=== PATIENT | male | born 1975 | race Asian ===

== ENCOUNTER 2017-04-03 21:14 | Emergency (ER) | payer OTHER ==
[~2017-04-03] VITALS: Ht 172.7 cm; Wt 81.0 kg
[~2017-04-03 21:14] MED LIST: ALLO100T PO; COLC0.6T69 PO
[2017-04-03] MEDS ORDERED: TOPI100T9 PO (21:29)
[2017-04-03] MEDS ORDERED: LISI-660 PO (21:29)
[2017-04-03 21:42] VITALS: BP 152/86
[2017-04-03] MEDS ORDERED: LIDOCAINE HCL BUFFERED 1% 20 ML VIAL INJ ONE (21:45)
[2017-04-03] MEDS ORDERED: CEPHALEXIN MONOHYDRATE 500 MG CAPSULE PO ONE (22:00)
[2017-04-03] MEDS ORDERED: BACITRACIN 0.9 GM PACKET OINTMENT TP ONE (22:15)
== END 2017-04-03 22:38 | disposition home or self-care (01) ==
LOC: EMS 21:20
DX: M79.5 Residual foreign body in soft tissue (principal); I10 Essential (primary) hypertension
CPT/HCPCS: 10120; 99285; J3490

== ENCOUNTER 2017-08-17 07:54 | Day surgery (SDC) | payer OTHER ==
[~2017-08-17] VITALS: Ht 172.7 cm; Wt 81.4 kg
[~2017-08-17 07:54] MED LIST changes: -ALLO100T PO; -COLC0.6T69 PO; +LISI-660 PO; +MIRT15 PO; +PRAZ2 PO; +SODIUM CHLORIDE 0.9% 1,000 ML IV ONE; +TOPI100T31 PO
[2017-08-17] MEDS ORDERED: MIDAZOLAM HCL 5 MG/ML VIAL ONE (13:13)
[2017-08-17] MEDS ORDERED: FentaNYL CITRATE-PF 100 MCG/2 ML VIAL ONE (13:13)
== END 2017-08-17 10:30 | disposition home or self-care (01) ==
LOC: SURGERY 07:54
PROVIDERS: ATTEND Internal Medicine Gastroenterology
DX: K64.2 Third degree hemorrhoids (principal); I10 Essential (primary) hypertension; K21.9 Gastro-esophageal reflux disease without esophagitis; E66.9 Obesity, unspecified; Z68.30 Body mass index [BMI] 30.0-30.9, adult; D64.9 Anemia, unspecified; Z98.890 Other specified postprocedural states
CPT/HCPCS: 45378; J2250; J3010; J7030

== ENCOUNTER 2019-10-24 11:45 | Emergency (ER) | payer OTHER ==
[~2019-10-24] VITALS: Ht 165.1 cm; Wt 77.3 kg
[~2019-10-24 11:45] MED LIST changes: -SODIUM CHLORIDE 0.9% 1,000 ML IV ONE
[2019-10-24] MEDS ORDERED: AMLO10TA7 PO (11:52)
[2019-10-24] MEDS ORDERED: LAMO25TA25 PO (11:52)
[2019-10-24] MEDS ORDERED: LAMO100 PO (12:37)
[2019-10-24] MEDS ORDERED: TAMS-13 PO (12:37)
[2019-10-24] MEDS ORDERED: LISI-662 PO (12:37)
[2019-10-24] MEDS: KETOROLAC TROMETHAMINE 30 MG/ML VIAL IM ONE (12:45)
[2019-10-24 14:19] VITALS: BP 143/99
== END 2019-10-24 14:25 | disposition home or self-care (01) ==
LOC: EMS 11:50
DX: S83.8X1A Sprain of other specified parts of right knee, initial encounter (principal); I10 Essential (primary) hypertension; Z98.890 Other specified postprocedural states; Z79.899 Other long term (current) drug therapy; W18.39XA Other fall on same level, initial encounter; Y93.89 Activity, other specified; Y92.89 Other specified places as the place of occurrence of the external cause; Y99.8 Other external cause status
CPT/HCPCS: 73564; 96372; 99283; J1885

== ENCOUNTER → 2021-11-11 | Outpatient (CLI) | payer OTHER ==
[~2021-11-11] MED LIST changes: +AMLO-258 PO; +LAMO100 PO; -LISI-660 PO; +LISI-894 PO; -MIRT15 PO; -PRAZ2 PO; +TAMS-13 PO; -TOPI100T31 PO
[2021-11-12 05:07] LABS: RUBELLA AB IGG-REFLAB 4.91 index (Immune >0.99); RUBEOLA (MEASLES) IGG >300.0 AU/mL (Immune >16.4)
== END | disposition home or self-care (01) ==
LOC: LABPV 12:52
PROVIDERS: ATTEND Internal Medicine
DX: Z02.1 Encounter for pre-employment examination (principal)
CPT/HCPCS: 86706; 86735; 86762; 86765; 86787

== ENCOUNTER 2022-09-27 05:33 | Emergency (ER) | payer OTHER ==
[~2022-09-27] VITALS: Ht 172.7 cm; Wt 84.0 kg
[2022-09-27 06:05] VITALS: BP 180/121
[2022-09-27 06:32] LABS: COVID AG,FIA SOURCE NASAL SWAB
[2022-09-27 07:01] LABS: INFLUENZA TYPE A NEGATIVE FOR TYPE A (NEGATIVE); INFLUENZA TYPE B NEGATIVE FOR TYPE B (NEGATIVE)
== END 2022-09-27 07:55 | disposition home or self-care (01) ==
LOC: EMS 05:34
DX: J06.9 Acute upper respiratory infection, unspecified (principal); Z20.822 Contact with and (suspected) exposure to COVID-19; I10 Essential (primary) hypertension; M10.9 Gout, unspecified
CPT/HCPCS: 87804; 99283

== ENCOUNTER 2023-03-20 12:34 | Emergency (ER) | payer OTHER ==
[~2023-03-20] VITALS: Ht 172.7 cm; Wt 84.1 kg
[2023-03-20] MEDS ORDERED: AMLO5TAB66 PO (14:40)
[2023-03-20] MEDS ORDERED: KETOROLAC TROMETHAMINE 30 MG/ML VIAL IM ONE (14:45)
[2023-03-20 15:00] VITALS: BP 154/104
[2023-03-20] MEDS ORDERED: COLC0.6T73 PO (15:18)
== END 2023-03-20 15:42 | disposition home or self-care (01) ==
LOC: EMS 12:46
DX: M10.071 Idiopathic gout, right ankle and foot (principal); I10 Essential (primary) hypertension
CPT/HCPCS: 99283; 96372; J1885

== ENCOUNTER 2024-03-05 21:19 | Emergency (ER) | payer OTHER ==
[~2024-03-05] VITALS: Ht 172.7 cm; Wt 84.1 kg
[~2024-03-05 21:19] MED LIST changes: -AMLO-258 PO; +AMLO5TAB66 PO; +COLC0.6T73 PO; +LAMO-24 PO; -LAMO100 PO; -TAMS-13 PO; +TAMS0.4C94 PO
[2024-03-05 21:22] VITALS: TEMP 98
[2024-03-05] MEDS: ONDANSETRON HCL 4 MG/2 ML VIAL IVP ONE (21:58)
[2024-03-05] MEDS: SODIUM CHLORIDE 0.9% 1,000 ML IV ONE ×2 (21:59→22:43)
[2024-03-05] MEDS: HYDROmorphone HCL 2 MG/ML SYRINGE IVP ONE (22:04)
[2024-03-05 22:05] LABS: BASOPHILS % (AUTO) 0.5 % (0.0-2.0); EOSINOPHILS % (AUTO) 1.3 % (1.0-6.0); HEMATOCRIT 54.1 % (41-53); HEMOGLOBIN 17.8 g/dL (13.5-17.5); LYMPHOCYTES # (AUTO) 1.1 K/uL (1.0-4.8); LYMPHOCYTES % (AUTO) 7.7 % (22.0-44.0); MEAN CORPUSCULAR HEMOGLOBIN 29.6 pg (26.0-34.0); MEAN CORPUSCULAR HGB CONC 32.9 G/dL (31.0-37.0); MEAN CORPUSCULAR VOLUME 90 fL (80-100); MONOCYTES # (AUTO) 0.7 K/uL (0.1-1.0); MONOCYTES % (AUTO) 4.8 % (2.0-9.0); NEUTROPHILS # (AUTO) 12.5 K/uL (1.8-7.7); PLATELET COUNT (AUTO) 201 K/uL (150-450); RED BLOOD CELL COUNT(AUTO) 6.03 MIL/uL (4.50-5.90); RED CELL DISTRIBUTION WIDTH 14.5 % (11.5-14.5); WHITE BLOOD COUNT (AUTO) 14.6 K/uL (4.5-11.0)
[2024-03-05 22:17] LABS: NEUTROPHILS % (AUTO) 85.7 % (40.0-70.0)
[2024-03-05 22:24] LABS: CALCIUM, TOTAL 10.2 mg/dL (8.8-10.5); CREATININE 1.63 mg/dL (0.60-1.30); POTASSIUM 3.5 mmol/L (3.5-5.1)
[2024-03-05 22:28] LABS: BILIRUBIN,TOTAL 0.8 mg/dL (0.1-1.0); TOTAL PROTEIN, SERUM 9.5 g/dL (6.4-8.2)
[2024-03-05] MEDS: ACETAMINOPHEN 500 MG TABLET PO ONE (22:29)
[2024-03-05] MEDS: DIPHENOXYLATE/ATROP 2.5-0.025 MG TABLET PO ONE (22:29)
[2024-03-06 02:07] VITALS: BP 124/82; PULSE 88; RESP 12
[2024-03-06] MEDS ORDERED: DIPH-1130 PO (02:20)
[2024-03-06] MEDS ORDERED: ONDA-104 PO (02:20)
[2024-03-06] MEDS ORDERED: ACET-66 PO (02:20)
== END 2024-03-06 03:15 | disposition home or self-care (01) ==
LOC: EMS 21:20
DX: K52.9 Noninfective gastroenteritis and colitis, unspecified (principal); E86.0 Dehydration; N28.9 Disorder of kidney and ureter, unspecified; E11.65 Type 2 diabetes mellitus with hyperglycemia; M10.9 Gout, unspecified; I10 Essential (primary) hypertension; Z98.890 Other specified postprocedural states
CPT/HCPCS: 99285; 96374; 96361; 96375; 80053; 83690; 85025; J1170; J2405; J7030

== ENCOUNTER 2024-12-14 21:17 | Emergency (ER) | payer OTHER ==
[~2024-12-14] VITALS: Ht 172.7 cm; Wt 85.5 kg
[~2024-12-14 21:17] MED LIST changes: +ACET-66 PO; +COLC-3 PO; -COLC0.6T73 PO; +DIPH-1130 PO; +ONDA-104 PO
[2024-12-14 21:32] VITALS: TEMP 98.2
[2024-12-14 22:59] VITALS: BP 159/107; PULSE 103; RESP 18; O2SAT 96
[2024-12-14] MEDS: IBUPROFEN 600 MG TABLET PO ONE (23:36)
[2024-12-14] MEDS ORDERED: IBUP-1492 PO (23:46)
== END 2024-12-15 00:13 | disposition home or self-care (01) ==
LOC: EMS 21:17
DX: S63.284A Dislocation of proximal interphalangeal joint of right ring finger, initial encounter (principal); I10 Essential (primary) hypertension; Z79.899 Other long term (current) drug therapy; X58.XXXA Exposure to other specified factors, initial encounter; Y93.89 Activity, other specified; Y92.89 Other specified places as the place of occurrence of the external cause; Y99.8 Other external cause status
CPT/HCPCS: 99283

== ENCOUNTER → 2025-05-12 | Emergency (ER) | payer OTHER ==
[~2025-05-12] VITALS: Ht 172.7 cm; Wt 85.5 kg
[~2025-05-12] MED LIST changes: +BACITRACIN 28 GM OINTMENT TP ONE; +IBUP-1492 PO
[2025-05-12 20:52] VITALS: TEMP 98.2
[2025-05-12 23:00] VITALS: BP 139/82; PULSE 71; RESP 17; O2SAT 98
== END | disposition still patient (30) ==
LOC: EMS 20:40
DX: S92.911A Unspecified fracture of right toe(s), initial encounter for closed fracture (principal); S60.221A Contusion of right hand, initial encounter; S90.31XA Contusion of right foot, initial encounter; I10 Essential (primary) hypertension; M10.9 Gout, unspecified; Z98.890 Other specified postprocedural states; Z79.899 Other long term (current) drug therapy; V89.2XXA Person injured in unspecified motor-vehicle accident, traffic, initial encounter; Y93.55 Activity, bike riding; Y92.89 Other specified places as the place of occurrence of the external cause; Y99.8 Other external cause status
CPT/HCPCS: 99284; 73130-TC; 73630-TC; Z7502; Z7610